=== PATIENT | female | born 2005 | race Caucasian/White ===

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

== ENCOUNTER → 2024-03-09 12:33 | Outpatient (CLI) | payer OTHER, SELFPAY ==
[2024-03-09 13:11] LABS: Add Manual Diff / Slide Review NO; Basophils Absolute Auto 0 /uL (0-100); Basophils Percent Auto 0.8 % (0-2); Eosinophils Absolute Auto 100 /uL (0-450); Eosinophils Percent Auto 1.1 % (2-4); Hematocrit 39.2 % (36-46); Hemoglobin 13.2 g/dL (12.0-16.0); Lymphocytes Absolute Auto 1100 /uL (1100-4500); Lymphocytes Percent Auto 19.3 % (25-40); Mean Corpuscular HGB Conc 33.6 % (30-36); Mean Corpuscular Hemoglobin 30.3 PG (26-34); Monocytes Absolute Auto 400 /uL (0-900); Monocytes Percent Auto 7.5 % (3-14); Neutrophils Absolute Auto 4200 /uL (1500-7000); Neutrophils Percent Auto 71.3 % (50-75); Platelet Count 298 X10^3/uL (150-400); Red Blood Cell Count 4.36 X10^6/uL (4.0-5.2); Red Cell Distribution Width 13.7 % (11.6-14.8); White Blood Cell Count 5.9 X10^3/uL (4.5-11.0)
[2024-03-09 13:27] LABS: HEMOLYSIS < 15 (0-50); Iron 300 ug/dL (37-170)
[2024-03-09 13:37] LABS: Total Iron Binding Capacity 309 ug/dL (265-497); Transferrin 226 mg/dL (206-381)
[2024-03-09 13:38] LABS: Percent Iron Saturation 97 % (15-50)
[2024-03-09 14:03] LABS: Ferritin 8 ng/mL (6-137)
== END ==
LOC: LAB 12:35
PROVIDERS: PCP Nurse Practitioner Family; Referring Provider Nurse Practitioner Family; Visit Provider Nurse Practitioner Family
DX: D50.9 Iron deficiency anemia, unspecified (principal)
CPT/HCPCS: 36415; 82728; 83540; 83550; 85025

== ENCOUNTER → 2024-03-15 16:11 | Outpatient (CLI) | payer OTHER, SELFPAY ==
[2024-03-15 17:03] LABS: Add Manual Diff / Slide Review NO; Basophils Absolute Auto 0 /uL (0-100); Basophils Percent Auto 0.6 % (0-2); Eosinophils Absolute Auto 0 /uL (0-450); Eosinophils Percent Auto 0.4 % (2-4); Hematocrit 36.1 % (36-46); Hemoglobin 12.2 g/dL (12.0-16.0); Lymphocytes Absolute Auto 1100 /uL (1100-4500); Lymphocytes Percent Auto 17.5 % (25-40); Mean Corpuscular HGB Conc 33.9 % (30-36); Mean Corpuscular Hemoglobin 30.5 PG (26-34); Mean Corpuscular Volume 90.1 fL (80-100); Monocytes Absolute Auto 400 /uL (0-900); Monocytes Percent Auto 6.3 % (3-14); Neutrophils Absolute Auto 4700 /uL (1500-7000); Neutrophils Percent Auto 75.2 % (50-75); Platelet Count 278 X10^3/uL (150-400); Red Cell Distribution Width 13.7 % (11.6-14.8); White Blood Cell Count 6.3 X10^3/uL (4.5-11.0)
[2024-03-15 17:23] LABS: HEMOLYSIS < 15 (0-50); Iron 100 ug/dL (37-170)
[2024-03-15 17:34] LABS: Percent Iron Saturation 31 % (15-50); Total Iron Binding Capacity 323 ug/dL (265-497); Transferrin 242 mg/dL (206-381)
[2024-03-15 17:59] LABS: Ferritin 9 ng/mL (6-137)
[2024-03-15 18:31] LABS: Folate 9.7 ng/mL (2.76-20.0); Vitamin B12 312 pg/mL (239-931)
== END ==
LOC: LAB 16:14
PROVIDERS: PCP Nurse Practitioner Family; Referring Provider Nurse Practitioner Family; Visit Provider Nurse Practitioner Family
DX: D64.9 Anemia, unspecified (principal)
CPT/HCPCS: 36415; 82607; 82728; 82746; 83540; 83550; 85025